=== PATIENT | male | born 1950 | race Two or more races ===

== ENCOUNTER 2018-08-01 21:17 | Inpatient (IN) | payer MEDICARE ==
[~2018-08-01] VITALS: Ht 162.6 cm; Wt 59.9 kg
[2018-08-01 21:17] VITALS: BP 108/67
--- NOTE | 2018-08-01 21:17 | NUR ---
ED Nurse Note: Pt brought in ED by ambulance from [facility]. C/o seizure episode today. No fall or injury were reported. Pt is A/O X4. Bp 108/ 67, Hr 104. O2 sat 100% on room air. Pt had Colostomy on abdomen with good grainage. IV access on right arm. Skin intact. Incontenet. Dr. Post at bed side, waiting for orders.
[2018-08-01] MEDS ORDERED: XELODA150 MG ORAL (21:39)
[2018-08-01] MEDS ORDERED: FAMOTIDINE20 MG ORAL (21:39)
[2018-08-01] MEDS ORDERED: DEXAMETHASONE4 M1 PO (21:39)
[2018-08-01] MEDS ORDERED: PANTOPRAZOLE SO40 MG ORAL (21:44)
[2018-08-01] MEDS ORDERED: NORCO 10-325 T1 EACH ORAL (21:44)
[2018-08-01] MEDS ORDERED: XELODA (21:44)
[2018-08-01] MEDS ORDERED: COLACE100 MG ORAL (21:44)
[2018-08-01] MEDS ORDERED: ACETAMINOPHEN325 M1 ORAL (21:44)
[2018-08-01] MEDS ORDERED: COLCHICINE0.6 M1 PO (21:44)
[2018-08-01] MEDS ORDERED: CATAPRES0.1 MG ORAL (21:44)
[2018-08-01] MEDS ORDERED: ZOLPIDEM TARTRAT5 MG ORAL (21:44)
[2018-08-01] MEDS ORDERED: ZOFRAN4 M3 ORAL (21:44)
--- NOTE | 2018-08-01 22:02 | NUR ---
ED Nurse Note: Blood and urine sample collected and sent to Lab. BS 101. started a new IV.
[2018-08-01 22:24] LABS: ANION GAP 14 mmol/L (5-15); BLOOD UREA NITROGEN 30 mg/dL (7-18); CALCIUM 8.4 MG/DL (8.5-10.1); CARBON DIOXIDE 18 MMOL/L (21-32); CHLORIDE 104 MMOL/L (98-107); CREATININE 1.5 MG/DL (0.55-1.30); POTASSIUM 3.9 MMOL/L (3.5-5.1); SODIUM 136 MMOL/L (136-145)
[2018-08-01 22:27] LABS: HEMATOCRIT 30.4 % (42.0-52.0); MEAN CORPUSCULAR VOLUME 75 FL (80-99); PLATELET COUNT 240 K/UL (150-450); RED BLOOD COUNT 4.07 M/UL (4.70-6.10); WHITE BLOOD COUNT 9.7 K/UL (4.8-10.8)
[2018-08-01 22:28] LABS: ALANINE AMINOTRANSFERASE 123 U/L (12-78); ALBUMIN 2.1 G/DL (3.4-5.0); ALBUMIN/GLOBULIN RATIO 0.5 (1.0-2.7); ALKALINE PHOSPHATASE 136 U/L (46-116); ASPARTATE AMINO TRANSFERASE 35 U/L (15-37); BILIRUBIN,TOTAL 0.2 MG/DL (0.2-1.0)
--- NOTE | 2018-08-01 22:29 | Diagnostic Imaging Report ---
EXAM: CT Head Without Intravenous Contrast CLINICAL HISTORY: AMS TECHNIQUE: Axial computed tomography images of the head/brain without intravenous contrast. CTDI is 0.15, 70.38 mGy and DLP is 1354 mGy-cm. One or more of the following dose reduction techniques were used: automated exposure control, adjustment of the mA and/or kV according to patient size, use of iterative reconstruction technique. COMPARISON: No relevant prior studies available. FINDINGS: Brain: Large areas of hypoattenuation within the left posterior frontal/parietal lobe measuring up to 5.5 cm. Findings are nonspecific and may represent underlying neoplasm, infection, or edema infarct. No hemorrhage. No significant white matter disease. Ventricles: Unremarkable. No ventriculomegaly. Bones/joints: Unremarkable. No acute fracture. Soft tissues: Unremarkable. Sinuses: Unremarkable as visualized. No acute sinusitis. Mastoid air cells: Unremarkable as visualized. No mastoid effusion. IMPRESSION: Large areas of hypoattenuation within the left posterior frontal/parietal lobe measuring up to 5.5 cm. Findings are nonspecific and may represent underlying neoplasm, infection, or edema infarct. Consider contrast enhanced MRI for further evaluation.
[2018-08-01 22:41] LABS: APPEARANCE,URINE CLEAR; BILIRUBIN, URINE NEGATIVE (NEGATIVE); COLOR,URINE PALE YELLOW; GLUCOSE, URINE (UA) NEGATIVE (NEGATIVE); KETONES,URINE NEGATIVE (NEGATIVE); LEUKOCYTE ESTERASE ,URINE 1+ (NEGATIVE); NITRITE,URINE NEGATIVE (NEGATIVE); PH,URINE 5 (4.5-8.0); PROTEIN,URINE 2+ (NEGATIVE); UROBILINOGEN,URINE NORMAL MG/DL (0.0-1.0)
[2018-08-01] MEDS ORDERED: Sodium Chloride 500ML 500 ML IV ONE (23:15)
--- NOTE | 2018-08-01 23:37 | Emergency Room Report ---
History of Present Illness General Chief Complaint: Seizure Source: Patient, EMS Present Illness HPI Patient is a 68-year-old male brought in by EMS after witnessed seizure at nursing facility. Patient prior history of adenocarcinoma. He was noted to have prior history of colostomy placement. History is markedly limited by patient's postictal status. Patient was sent in from [facility]. Patient denied any complaints after more alert. Allergies: Coded Allergies: No Known Allergies (Unverified , 08/01/18) Patient History Past Medical History: see triage record Reviewed Nursing Documentation: PMH: Agreed; PSxH: Agreed Nursing Documentation-PMH Past Medical History: No History, Except For Review of Systems All Other Systems: limited - by poor historian Physical Exam Vital Signs Date Time Temp Pulse Resp B/P (MAP) Pulse Ox O2 Delivery O2 Flow Rate FiO2 08/01/18 21:13 120 18 146/74 97 Room Air 08/01/18 21:17 98.6 Sp02 EP Interpretation: reviewed, normal General Appearance: normal inspection, no apparent distress, alert, Chronically Ill Head: atraumatic ENT: normal ENT inspection, hearing grossly normal, normal voice Neck: normal inspection, full range of motion, supple, no bony tend Respiratory: normal inspection, lungs clear, normal breath sounds, no respiratory distress, no retraction, no wheezing Cardiovascular #1: regular rate, rhythm, no edema Gastrointestinal: soft, no guarding, no hernia, other - colostomy Genitourinary: no CVA tenderness Musculoskeletal: normal inspection, back normal, normal range of motion Neurologic: normal inspection, alert, responsive, cook syrup maker III-XII nml as tested, speech normal, other - moves all extremities Psychiatric: normal inspection, judgement/insight normal, mood/affect normal Skin: normal inspection, normal color, no rash Medical Decision Making Diagnostic Impression: Primary Impression: Epileptic seizure, generalized Additional Impression: Left parietal lobe lesion ER Course Patient presented for new onset seizure. Differential diagnosis includes is not limited to CVA, intracranial hemorrhage, mass lesion, electrolyte abnormality, meningitis among others. Because of complexity of patient's case laboratory testing and imaging studies were ordered. Patient appear to have a nonfocal neurologic exam. Patient was given IV Keppra. He was given IV Decadron due to some evidence of edema to left parietal lobe. This may represent an underlying mass and patient had known history of adenocarcinoma. Patient is followed by Dr. Rowan. Patient will be admitted to Dr. Van for further workup due to covering physician for Dr. Rowan. Labs Test 08/01/18 22:02 08/01/18 22:27 White Blood Count 9.7 K/UL (4.8-10.8) Red Blood Count 4.07 M/UL (4.70-6.10) Hemoglobin 10.0 G/DL (14.2-18.0) Hematocrit 30.4 % (42.0-52.0) Mean Corpuscular Volume 75 FL (80-99) Mean Corpuscular Hemoglobin 24.6 PG (27.0-31.0) Mean Corpuscular Hemoglobin Concent 32.9 G/DL (32.0-36.0) Red Cell Distribution Width 21.0 % (11.6-14.8) Platelet Count 240 K/UL (150-450) Mean Platelet Volume 5.6 FL (6.5-10.1) Neutrophils (%) (Auto) % (45.0-75.0) Lymphocytes (%) (Auto) % (20.0-45.0) Monocytes (%) (Auto) % (1.0-10.0) Eosinophils (%) (Auto) % (0.0-3.0) Basophils (%) (Auto) % (0.0-2.0) Differential Total Cells Counted 100 Neutrophils % (Manual) 86 % (45-75) Lymphocytes % (Manual) 9 % (20-45) Monocytes % (Manual) 5 % (1-10) Eosinophils % (Manual) 0 % (0-3) Basophils % (Manual) 0 % (0-2) Band Neutrophils 0 % (0-8) Platelet Estimate Adequate Platelet Morphology Normal Red Blood Cell Morphology Normal Sodium Level 136 MMOL/L (136-145) Potassium Level 3.9 MMOL/L (3.5-5.1) Chloride Level 104 MMOL/L (98-107) Carbon Dioxide Level 18 MMOL/L (21-32) Anion Gap 14 mmol/L (5-15) Blood Urea Nitrogen 30 mg/dL (7-18) Creatinine 1.5 MG/DL (0.55-1.30) Estimat Glomerular Filtration Rate 46.8 mL/min (>60) Glucose Level 111 MG/DL (74-106) Calcium Level 8.4 MG/DL (8.5-10.1) Total Bilirubin 0.2 MG/DL (0.2-1.0) Aspartate Amino Transf (AST/SGOT) 35 U/L (15-37) Alanine Aminotransferase (ALT/SGPT) 123 U/L (12-78) Alkaline Phosphatase 136 U/L (46-116) Troponin I 0.001 ng/mL (0.000-0.056) Total Protein 6.5 G/DL (6.4-8.2) Albumin 2.1 G/DL (3.4-5.0) Globulin 4.4 g/dL Albumin/Globulin Ratio 0.5 (1.0-2.7) Serum Alcohol < 3 mg/dL Urine Color Pale yellow Urine Appearance Clear Urine pH 5 (4.5-8.0) Urine Specific Walker 1.010 (1.005-1.035) Urine Protein 2+ (NEGATIVE) Urine Glucose (UA) Negative (NEGATIVE) Urine Ketones Negative (NEGATIVE) Urine Blood 1+ (NEGATIVE) Urine Nitrite Negative (NEGATIVE) Urine Bilirubin Negative (NEGATIVE) Urine Urobilinogen Normal MG/DL (0.0-1.0) Urine Leukocyte Esterase 1+ (NEGATIVE) Urine RBC 2-4 /HPF (0 - 0) Urine WBC 0-2 /HPF (0 - 0) Urine Squamous Epithelial Cells None /LPF (NONE/OCC) Urine Amorphous Sediment Few /LPF (NONE) Urine Bacteria Few /HPF (NONE) Last Vital Signs Date Time Temp Pulse Resp B/P (MAP) Pulse Ox O2 Delivery O2 Flow Rate FiO2 08/01/18 21:17 98.6 104 18 108/67 97 Room Air Status: improved Disposition: ADMITTED INPATIENT Condition: Stable Referrals: Hector Rowan MD (PCP) Juan Post MD Aug 01, 2018 23:37
[2018-08-01] MEDS ORDERED: Dexamethasone 4mg/ml vial IVP ONE (23:45)
[2018-08-01] MEDS ORDERED: levETIRAcetam 1,000mg/NS100ml 100 ML IVPB ONE (23:45)
--- NOTE | 2018-08-01 23:56 | NUR ---
ED Nurse Note: Meds given as ordered.
--- NOTE | 2018-08-02 00:55 | NUR ---
TRANSFER TO FLOOR: Patient transferred to Tele/ 208 as ordered. Report given to Peewee/RN. Belongings sent with Pt and re-checked with RN. Pt is A/O X4.
--- NOTE | 2018-08-02 01:00 | NUR ---
NURSE NOTES: Received report from Fany Perdue RN. regarding patient transfer to floor from ED.Patient arrived via gurney and assisted by staff to transfer to bed. Belongings checklist done at bedside, Kept clean, comfortable in bed at all times. Safety precaution in place. Will call attending MD for orders
--- NOTE | 2018-08-02 01:30 | NUR ---
NURSE NOTES: Spoke with MD Carlota. Regarding patients arrival to unit, new orders received and carried out. Will continue plan of care and monitor for any changes in condition.
[2018-08-02 01:50] VITALS: BP 108/64
[2018-08-02] MEDS ORDERED: Zolpidem 5mg tab ORAL PRN (02:15)
[2018-08-02] MEDS ORDERED: HYDROcodone/Acetamin 10/325 tab ORAL PRN ×2 (02:15→08:15)
[2018-08-02] MEDS ORDERED: LORazepam Inj 2mg/ml 1ml IV PRN (02:15)
--- NOTE | 2018-08-02 04:40 | NUR ---
NURSE NOTES: Patient in bed asleep with no S/S of distress at this time. Will continue to monitor
[2018-08-02 06:55] LABS: HEMATOCRIT 28.5 % (42.0-52.0); HEMOGLOBIN 9.1 G/DL (14.2-18.0); MEAN CORPUSCULAR VOLUME 76 FL (80-99); PLATELET COUNT 237 K/UL (150-450); RED BLOOD COUNT 3.75 M/UL (4.70-6.10); RED CELL DISTRIBUTION WIDTH 23.9 % (11.6-14.8); WHITE BLOOD COUNT 8.7 K/UL (4.8-10.8)
--- NOTE | 2018-08-02 07:09 | NUR ---
HAND-OFF: Report given to EomUyen RN. Patient in stable condition, endorsed plan of care.
--- NOTE | 2018-08-02 07:15 | NUR ---
NURSE NOTES: Received report from COLLEEN Vides. Patient is in stable condition. No acute distress/SOB noted. Will continue plan of care.
[2018-08-02 07:31] LABS: ALANINE AMINOTRANSFERASE 102 U/L (12-78); ALBUMIN/GLOBULIN RATIO 0.5 (1.0-2.7); ALKALINE PHOSPHATASE 122 U/L (46-116); ANION GAP 10 mmol/L (5-15); ASPARTATE AMINO TRANSFERASE 27 U/L (15-37); BILIRUBIN,TOTAL 0.2 MG/DL (0.2-1.0); BLOOD UREA NITROGEN 29 mg/dL (7-18); CALCIUM 8.5 MG/DL (8.5-10.1); CARBON DIOXIDE 21 MMOL/L (21-32); CHLORIDE 107 MMOL/L (98-107); CREATININE 1.2 MG/DL (0.55-1.30); POTASSIUM 4.1 MMOL/L (3.5-5.1); SODIUM 138 MMOL/L (136-145)
[2018-08-02 08:00] VITALS: BP 96/62
[2018-08-02] MEDS: Docusate 100mg cap ORAL SCH (08:20)
[2018-08-02] MEDS: levETIRAcetam 500mg/NS100ml 100 ML IVPB SCH ×2 (08:20→21:28)
[2018-08-02] MEDS ORDERED: Gadavist 7.5mMol/7.5ml vial IV PRN (09:45)
--- NOTE | 2018-08-02 10:30 | History and Physical Report ---
DATE OF ADMISSION: 08/01/2018 CHIEF COMPLAINT: New onset seizure. HISTORY OF PRESENT ILLNESS: The patient is a 68-year-old male. He has a history of hypertension and GERD. He has a history of rectosigmoid carcinoma with brain metastasis. He was recently transferred to a care home facility. The patient is a poor historian. According to the patient, he has a history of colon cancer. He has a colostomy. Currently, he is without complaint, but at the long-term, he developed new onset seizures, transferred to the emergency room. On evaluation there, he had a CAT scan of the head that showed a large area of hypoattenuation in the left posterior frontal parietal lobe measuring 5.5 cm. He was given a dose of steroids and IV Keppra and is now admitted for further evaluation and care. PAST MEDICAL HISTORY: As above. Anemia, gout, and history of UTI. PAST SURGICAL HISTORY: Prior history of a colostomy. CURRENT MEDICATIONS: Reconciled and reviewed. ALLERGIES: None. FAMILY HISTORY: None. SOCIAL HISTORY: There is no known history of tobacco, ethanol, or drugs. REVIEW OF SYSTEMS: GENERAL: No fevers or chills. HEENT: No headaches or visual changes. CARDIOPULMONARY: No chest pain or shortness of breath. GASTROINTESTINAL: No nausea or vomiting. Positive history of colostomy. GENITOURINARY: No urgency or frequency. MUSCULOSKELETAL: No joint pain or swelling. NEUROLOGIC: No prior history of seizures. PHYSICAL EXAMINATION: VITAL SIGNS: Temperature 98, pulse 104, respirations 18, and blood pressure 108/67. GENERAL: The patient is well developed, no apparent distress. He is awake, alert, and oriented x4. NECK: Supple. HEART: Regular rate and rhythm. LUNGS: Clear. ABDOMEN: Soft, nontender, and nondistended. There was a colostomy on the right side of the abdomen that is straining soft brown stool. EXTREMITIES: Without clubbing, cyanosis, or edema. Motor strength is 5/5 bilaterally. LABORATORY DATA: White count 9, hemoglobin 10, hematocrit 30, and platelets 240. Sodium 136, potassium 3.9, chloride 104, bicarb 18, BUN 30, and creatinine 1.5. ASSESSMENT: This is a pleasant male, who complaints of new onset seizure secondary to metastatic colon cancer, acute renal failure. PLAN: We will increase the patient's steroids, IV Keppra has been started. Neuro consultation will be obtained. We will order an MRI of the brain. Gentle hydration. DVT and stress ulcer prophylaxis will be instituted. Plan of care was discussed with the patient at the bedside. Olegario Van M.D. DR: LIZZIE JOB#: [id number] CC:
[2018-08-02 12:00] VITALS: BP 105/71
[2018-08-02 16:00] VITALS: BP 97/58
[2018-08-02] MEDS ORDERED: Tubing IV Secondary IV ONE (17:33)
--- NOTE | 2018-08-02 19:19 | NUR ---
HAND-OFF: Report given to COLLEEN Singleton. Patient is in stable condition. Endorsed plan of care.
--- NOTE | 2018-08-02 19:55 | NUR ---
NURSE NOTES: Report received from COLLEEN Warren. Pt is lying comfortably in bed in semi-fowlers position with no signs of distress. Pt is A+Ox4 and denies pain/SOB. IV site is patent, intact, and saline locked. Respirations are even and unlabored on room air. Bed is at lowest position, brakes engaged, siderailsx2, bed alarm on, and call light within reach. Pt is in stable condition at this time; will continue to monitor.
[2018-08-02 20:00] VITALS: BP 94/57
[2018-08-03] VITALS: BP 121/71
[2018-08-03 04:00] VITALS: BP 89/49
--- NOTE | 2018-08-03 07:01 | NUR ---
NURSE NOTES: Received report from COLLEEN Turk. Patient is in stable condition. No acute distress/SOB noted. No seizure noted. Will continue plan of care.
[2018-08-03 08:00] VITALS: BP 113/60
[2018-08-03] MEDS: levETIRAcetam 500mg/NS100ml 100 ML IVPB SCH (08:27)
[2018-08-03] MEDS: Docusate 100mg cap ORAL SCH (08:27)
--- NOTE | 2018-08-03 09:48 | NUR ---
NURSE NOTES: Colostomy care given.
--- NOTE | 2018-08-03 09:53 | General Progress Note ---
Assessment/Plan Problem List: (1) Colon cancer ICD Codes: C18.9 - Malignant neoplasm of colon, unspecified SNOMED: 846717808 (2) Epileptic seizure, generalized ICD Codes: G40.309 - Generalized idiopathic epilepsy and epileptic syndromes, not intractable, without status epilepticus SNOMED: 68048823 (3) Left parietal lobe lesion ICD Codes: G93.9 - Disorder of brain, unspecified SNOMED: 417230331, 9702803 Status: stable Assessment/Plan eeg neuro eval pending po sz rx steroids colostomy care Subjective ROS Limited/Unobtainable: No Constitutional: Reports: malaise, weakness HEENT: Reports: no symptoms Cardiovascular: Reports: no symptoms Respiratory: Reports: no symptoms Gastrointestinal/Abdominal: Reports: no symptoms Genitourinary: Reports: no symptoms Neurologic/Psychiatric: Reports: seizure Endocrine: Reports: no symptoms Hematologic/Lymphatic: Reports: no symptoms Allergies: Coded Allergies: No Known Allergies (Unverified , 08/01/18) All Systems: reviewed and negative except above Subjective no events. no szs noted. alert. on steroids and iv sz rx Objective Last 24 Hour Vital Signs Date Time Temp Pulse Resp B/P (MAP) Pulse Ox O2 Delivery O2 Flow Rate FiO2 08/03/18 08:00 98.3 93 20 113/60 (77) 98 08/03/18 04:00 98.0 84 18 89/49 (62) 98 08/03/18 04:00 68 08/03/18 00:00 68 08/03/18 00:00 98.4 71 20 121/71 (88) 98 08/02/18 21:00 Room Air 08/02/18 20:00 86 08/02/18 20:00 97.8 81 18 94/57 (69) 96 08/02/18 16:00 75 08/02/18 16:00 98.1 76 20 97/58 (71) 98 08/02/18 12:00 98.1 87 20 105/71 (82) 100 08/02/18 12:00 70 08/02/18 10:03 Room Air Intake and Output 08/02/18 08/03/18 19:00 07:00 Intake Total 120 ml Output Total 750 ml 700 ml Balance -630 ml -700 ml Intake Oral 120 ml Output Urine Total 600 ml 700 ml Stool Total 150 ml # Bowel Movements 1 Height (Feet): 5 Height (Inches): 4.00 Weight (Pounds): 132 General Appearance: WD/WN, alert Neck: supple Cardiovascular: regular rhythm Respiratory/Chest: lungs clear, normal breath sounds, no respiratory distress Abdomen: normal bowel sounds, non tender, soft, other - colostomy Edema: no edema noted Arm (L), no edema noted Arm (R), no edema noted Leg (L), no edema noted Leg (R), no edema noted Pedal (L), no edema noted Pedal (R), no edema noted Generalized Olegario Van MD Aug 03, 2018 09:53
--- NOTE | 2018-08-03 10:18 | NUR ---
NURSE NOTES: Verified EEG order with Tk.
[2018-08-03 12:00] VITALS: BP 100/61
[2018-08-03 16:00] VITALS: BP 123/64
--- NOTE | 2018-08-03 16:41 | NUR ---
CASE MANAGEMENT: INITIAL REVIEW 68 YO M PAZA FROM [facility] CC: SZ PMHx: ADENOCARCINOMA. SI:NEW ONSET SZ. T 98.6 HR 120 RR 18 B/P 146/74 SATS 97% ON RA CO 2 18 BUN 30 CR 1.5 GLUCOSE 111 CA 8.4 ALT 123 ALP 136 IS: NS BOLUS X1 PATIENT ADMITTED TO [facility] 08/01/2018 @ 9668 DCP: PATIENT TO BE DISCHARGED TO SNF ONCE MEDICALLY CLEARED. PLAN OF CARE: EEG NEURO EVAL
--- NOTE | 2018-08-03 19:14 | NUR ---
HAND-OFF: Report given to COLLEEN Kemp. Patient is in stable condition. No acute distress/SOB noted. Endorsed plan of care..
[2018-08-03 20:00] VITALS: BP 104/56
--- NOTE | 2018-08-03 20:00 | NUR ---
NURSE NOTES: Received report from COLLEEN Warren. Pt is resting in bed. Bed is in lowest position, side rails up X2, and call light is within reach. Will continue to monitor.
[2018-08-03] MEDS: levETIRAcetam 500mg/5ml Liquid NG SCH (21:06)
--- NOTE | 2018-08-03 22:57 | NUR ---
HAND-OFF: Report given to COLLEEN Darden. Plan of care endorsed.
[2018-08-04] VITALS: BP 95/60
[2018-08-04 04:00] VITALS: BP 107/67
--- NOTE | 2018-08-04 07:20 | NUR ---
NURSE NOTES: Report received from Hilary MACIAS. Pt is sitting in bed and eating his breakfast in stable condition.Pt is awake, alert, and oriented x4. Pt is on room air and breathing is even and unlabored. No signs and symptoms of acute distress at this time. Pt denies pain at this time. Bed is in lowest position with brake engaged, side rails up x2, and bed alarm on. Call light within reach. Will continue to monitor and follow plan of care.
[2018-08-04 08:00] VITALS: BP 105/67
[2018-08-04] MEDS: levETIRAcetam 500mg/5ml Liquid NG SCH ×2 (08:52→20:09)
[2018-08-04] MEDS: Docusate 100mg cap ORAL SCH (08:52)
--- NOTE | 2018-08-04 08:57 | General Progress Note ---
Assessment/Plan Problem List: (1) Colon cancer ICD Codes: C18.9 - Malignant neoplasm of colon, unspecified SNOMED: 593167944 (2) Epileptic seizure, generalized ICD Codes: G40.309 - Generalized idiopathic epilepsy and epileptic syndromes, not intractable, without status epilepticus SNOMED: 73722285 (3) Left parietal lobe lesion ICD Codes: G93.9 - Disorder of brain, unspecified SNOMED: 467687246, 5079032 Status: stable, progressing Assessment/Plan eeg MRI brain po sz rx steroids colostomy care dc planning with outpt onc follow up Subjective ROS Limited/Unobtainable: No Constitutional: Reports: malaise, weakness HEENT: Reports: no symptoms Cardiovascular: Reports: no symptoms Respiratory: Reports: no symptoms Gastrointestinal/Abdominal: Reports: no symptoms Genitourinary: Reports: no symptoms Neurologic/Psychiatric: Reports: pre-existing deficit, seizure Endocrine: Reports: no symptoms Hematologic/Lymphatic: Reports: anemia Allergies: Coded Allergies: No Known Allergies (Unverified , 08/01/18) All Systems: reviewed and negative except above Subjective no events. no szs noted. alert. on steroids and iv sz rx mri scheduled for today. feels "fine" Objective Last 24 Hour Vital Signs Date Time Temp Pulse Resp B/P (MAP) Pulse Ox O2 Delivery O2 Flow Rate FiO2 08/04/18 08:00 99.1 20 105/67 (80) 96 08/04/18 04:00 97.4 22 107/67 (80) 97 08/04/18 04:00 96 08/04/18 00:00 101 08/04/18 00:00 98.4 104 20 95/60 (72) 97 08/03/18 21:00 Room Air 08/03/18 20:00 99.7 100 20 104/56 (72) 95 08/03/18 20:00 112 08/03/18 16:00 98.8 103 20 123/64 (83) 98 08/03/18 16:00 106 08/03/18 12:00 98.2 93 20 100/61 (74) 98 08/03/18 12:00 92 08/03/18 09:00 Room Air Intake and Output 08/03/18 08/04/18 18:59 06:59 Intake Total 100 ml Output Total 875 ml Balance -775 ml Intake Oral 100 ml Output Urine Total 875 ml # Voids 2 # Bowel Movements 1 Height (Feet): 5 Height (Inches): 4.00 Weight (Pounds): 132 Objective General Appearance: WD/WN, alert Neck: supple Cardiovascular: regular rhythm Respiratory/Chest: lungs clear, normal breath sounds, no respiratory distress Abdomen: normal bowel sounds, non tender, soft, other - colostomy Edema: no edema noted Arm (L), no edema noted Arm (R), no edema noted Leg (L), no edema noted Leg (R), no edema noted Pedal (L), no edema noted Pedal (R), no edema noted Generalized Olegario Van MD Aug 04, 2018 08:57
--- NOTE | 2018-08-04 10:01 | NUR ---
CASE MANAGEMENT:REVIEW 08/04/18 SI: NEW ONSET SEIZURE HR~104 BP~95/60 IS: IV KEPRRA Q12 DECADRON PO BID : TELEMETRY STATUS DCP: FROM [facility] PLAN: EEG RESULTS PENDING CONTINUE IV KEPPRA
--- NOTE | 2018-08-04 11:52 | NUR ---
MRI BRAIN W/WO COMPLETED, SEIZURE PROTOCOL
[2018-08-04 12:00] VITALS: BP_SYST 104; BP_SYST 108; BP_DIAS 62; BP_DIAS 71
--- NOTE | 2018-08-04 14:29 | Diagnostic Imaging Report ---
Indication: History of colon carcinoma, abnormal recent brain CT Technique: sagittal T1 fast spin echo, axial T1 and T2 FLAIR PROPELLER, axial T2 FS PROPELLER, T2* GRE, axial diffusion weighted images,, coronal T2 FLAIR PROPELLER, coronal FSPGR DASH, post contrast axial and coronal T1 FLAIR PROPELLER images. ADC and exponential ADC maps generated Comparison: Reference made to CT scan dated 07/24/2018 Findings: The posterior left parietal lobe, there is a cystic rim-enhancing mass which measures 5.1 cm long axis dimension by 3.8 x 3.4 orthogonal short axis dimensions. This is mostly cystic, with a thin enhancing rim. The visualized sinuses are clear there is probably a very thin septation within the cyst. There is an of mural focus of signal which is nonfluid but does not enhance, which measures approximately 2 cm long axis dimension, at the superior aspect of the lesion. The superior periphery demonstrates some nodular enhancement. There is also a focus of nodular enhancement at the anteromedial aspect of the rim. The cyst contents do not show any diffusion restriction. However, the rim is bright on the diffusion weighted images. There is a moderate amount of surrounding vasogenic edema. There is local mass effect, manifested by attenuation of the ipsilateral sulci and of the posterior aspect of the body of the left lateral ventricle. There is minimal, no more than 1-2 mm, left right midline shift. At the superior aspect of the tumor, there is a small focus of susceptibility artifact which may indicate some intratumoral hemorrhage.. No abnormal areas of restricted diffusion to suggest acute infarction. No acute hemorrhage. Other than the areas affected by the mass effect, there is age-related enlargement of the ventricles and extra axial CSF spaces. No other abnormal contrast enhancement. The vascular flow voids are preserved. Visualized orbits are unremarkable.. Visualized orbits and sinuses are unremarkable. . Impression: 5.1 x 3.8 x 3.4 cm mostly cystic mass with rim enhancement and focal areas of nodular enhancement and noncystic signal, minimal intratumoral hemorrhage, as described. Surrounding edema Main differential considerations include primary brain malignancy, metastatic neoplasm, cerebral abscess. Other much less likely differential considerations include tuberculoma, subacute infarct, tumefactive demyelinating lesion, lymphoma. The absence of diffusion restriction within the cyst, presence of diffusion restriction of the rim, and the presence of a nodular enhancing component favors cystic glioblastoma. However, the other etiologies are certainly possible as well. The above results in mostly local mass effect Age-related changes, as described Negative for acute infarct or acute hemorrhage
[2018-08-04 16:00] VITALS: BP 104/62
--- NOTE | 2018-08-04 16:10 | NUR ---
INSURANCE ALL CLINICALS AND REVIEWS FAXED TO: [facility] P:[phone] F:[phone]
--- NOTE | 2018-08-04 18:25 | NUR ---
NURSE NOTES: Trying to call facility ([facility]) for discharge, Nurse asked me to call back in 10 minutes so he can get a chance to her charge nurse. Tried my call back , somebody picked up the phone and said there is no nurse in [facility], tried again and the same person picked up the phone. Dr. Van informed.
--- NOTE | 2018-08-04 19:23 | NUR ---
HAND-OFF: Report given to COLLEEN James.
--- NOTE | 2018-08-04 19:36 | NUR ---
NURSE NOTES: Received report from COLLEEN Echavarria. Patient is awake lying semi-norton's; resting comfortably. No signs of acute distress noted; denies pain at this time. AOx4; able to make needs known. Primarily Bulgarian speaking. Checked IV site; patent and flushed. No erythema, bleeding, or infiltration noted. Right lower quadrant colostomy draining well to gravity. Urinal easily accessible. Bed at lowest position, brakes on, siderails up x3. Siderails padded following seizure precautions. Suction at bedside. Call light within reach. Will continue to monitor.
[2018-08-04 20:00] VITALS: BP 99/60
[2018-08-05] VITALS: BP 96/60
[2018-08-05 04:00] VITALS: BP 90/49
--- NOTE | 2018-08-05 05:09 | NUR ---
NURSE NOTES: Patient is asleep lying right lateral recumbent; resting comfortably. No signs of acute distress or pain noted at this time.
--- NOTE | 2018-08-05 07:16 | NUR ---
HAND-OFF: Report given to COLLEEN Echavarria. Patient is awake lying high-norton's eating breakfast. In stable condition. Endorsed to oncoming RN regarding possible discharge later today; verbalized understanding.
--- NOTE | 2018-08-05 07:20 | NUR ---
NURSE NOTES: Report received from COLLEEN James. Pt is sitting in bed and eating his breakfast in stable condition.Pt is awake, alert, and oriented x4. Pt is on room air and breathing is even and unlabored. No signs and symptoms of acute distress at this time. Pt denies pain at this time. Bed is in lowest position with brake engaged, side rails up x2, and bed alarm on. Seizure percussion in place. Call light within reach. Will continue to monitor and follow plan of care.
[2018-08-05 08:00] VITALS: BP 102/69
[2018-08-05] MEDS: Docusate 100mg cap ORAL SCH (08:33)
[2018-08-05] MEDS: levETIRAcetam 500mg/5ml Liquid NG SCH (09:14)
[2018-08-05] MEDS ORDERED: KEPPRA LIQ100 MG/1 M NG (09:33)
--- NOTE | 2018-08-05 10:30 | NUR ---
NURSE NOTES: Called to Brandon Moreland and report given to COLLEEN Ortiz.
--- NOTE | 2018-08-05 11:24 | NUR ---
NURSE NOTES: Patient discharged per Dr. Van's order. All discharge instruction reviewed with patient. All patient's belonging return to patient. ID band removed and placed in shredder. Heart monitor removed and returned to school bus monitor. IV removed. Patient left the hospital in stable condition with [facility].
--- NOTE | 2018-08-05 14:00 | Electroencephalogram ---
REQUESTING PHYSICIAN: Olegario Van M.D. DATE OF TRACIN08/03/2018. HISTORY: This EEG was performed on a 68-year-old gentleman with history of colon cancer and left parietal lobe lesions, who apparently had a generalized seizure. The purpose of this EEG was to evaluate the patient for ictal or interictal phenomena. TECHNICAL NOTE: This EEG was performed on a [employer] with electrodes placed on the scalp according to the International 10-20 system. [id number] and bhgyn-kw-oxi montages were used. The EEG was technically satisfactory, and was performed predominantly in the awake state with a few brief periods of drowsiness. OBSERVATIONS: In the reportedly awake state, the background activity consisted of 9- 10 Hz posteriorly predominant, well-developed, alpha waveforms, which attenuated on eye opening. Drowsiness was characterized by dissolution of the alpha rhythm and the appearance of slower frequencies in the 5-6 Hz theta range. Photic stimulation was performed at various different frequencies and produced a normal driving response. No focal abnormalities or epileptiform discharges were seen. IMPRESSION: Normal awake and drowsy EEG. COMMENT: A normal EEG does not rule out the seizure disorder. Angel Wilson M.D., M.S.P.H. DR: ABDIAZIZ JOB#: [id number] MTDD
--- NOTE | 2018-08-05 14:45 | Discharge Summary ---
DATE OF ADMISSION: 08/01/2018 DATE OF DISCHARGE: 08/05/2018 ADMISSION DIAGNOSES: 1. Seizures. 2. History of colon cancer with brain metastasis. DISCHARGE DIAGNOSES: 1. Seizures. 2. History of colon cancer with brain metastasis. HOSPITAL COURSE: The patient is a pleasant but unfortunate male with history of metastatic colon cancer. He was admitted with new onset seizures. He has a known history of metastatic colon cancer to the brain. He was admitted. He was placed on steroids and Keppra. He had a CAT scan and later MRI of the brain that showed mostly cystic mass with rim enhancement and focal areas of nodule enhancement consistent with metastatic neoplasm. The patient had no further seizures on Keppra and on steroids. [facility]. He will follow up with his oncologist in the next week hopefully. DISCHARGE MEDICATIONS: Please see discharge medication list for discharge medications. DIET: Regular. ACTIVITY: Ad-rachel. Olegario Van M.D. DR: Felecia JOB#: [id number] CC:
== END 2018-08-05 11:30 | DRG 101 ==
LOC: EDBD 21:17 → EMR 21:29 → 2E 23:22 → EDBEDREQ 08-02 00:01
DX: G40.89 Other seizures (principal); C18.9 Malignant neoplasm of colon, unspecified; C79.31 Secondary malignant neoplasm of brain; N17.9 Acute kidney failure, unspecified; I10 Essential (primary) hypertension; K21.9 Gastro-esophageal reflux disease without esophagitis; Z43.3 Encounter for attention to colostomy
CPT/HCPCS: 36415; 70450; 70553; 80053; 80329; 81003; 82962; 84484; 85007; 85025; 87081; 93005; 93970; 95819; 96365; 96375; 99285; A9585